=== PATIENT | female | born 1950 | race Caucasian/White ===

== ENCOUNTER → 2020-11-12 13:36 | Outpatient (BNVA) | payer MEDICARE, BC, SELFPAY | PROVIDERS: PCP Family Medicine; Visit Provider Nurse Practitioner | DX: R26.89 Other abnormalities of gait and mobility (principal); R25.1 Tremor, unspecified; R90.89 Other abnormal findings on diagnostic imaging of central nervous system; N18.9 Chronic kidney disease, unspecified; R63.4 Abnormal weight loss; Z68.23 Body mass index [BMI] 23.0-23.9, adult; Z79.899 Other long term (current) drug therapy | CPT/HCPCS: 96116; 99204 ==